=== PATIENT | female | born 1990 | race Caucasian/White ===

== ENCOUNTER 2016-10-28 15:40 | Inpatient (IN) | payer MEDICAID, OTHER ==
[~2016-10-28] VITALS: Ht 167.6 cm; Wt 100.2 kg
[2016-10-28] VITALS (40 sets, daily range): BP systolic 78–142; BP diastolic 42–86
[2016-10-28] MEDS ORDERED: LEVO25TA5 PO (16:16)
[2016-10-28 16:42] LABS: BILIRUBIN,URINE NEGATIVE (NEGATIVE); KETONES,URINE NEGATIVE (NEGATIVE); LEUKOCYTE ESTERASE ,URINE 1+ (NEGATIVE); NITRITE,URINE NEGATIVE (NEGATIVE); PH,URINE 8 (5-9); PROTEIN,URINE NEGATIVE (NEGATIVE); UROBILINOGEN,URINE NORMAL (NORMAL)
[2016-10-28 17:00] LABS: WBC,URINE 0-2 /HPF
[2016-10-28] MEDS ORDERED: AMPICILLIN 2000 MG INJECTION (IM/IV) ONE (17:07)
[2016-10-28] MEDS ORDERED: NS (IVPB) 50 ML ONE (17:08)
[2016-10-28] MEDS: D5 LR IV SOLUTION 1,000 ML IV SCH (17:25)
[2016-10-28] MEDS ORDERED: AMPICILLIN INJECTION 2,000 MG in NS (IVPB) 50 ML IV ONE (17:30)
[2016-10-28] MEDS: OXYTOCIN/NORMAL SALINE 500 ML IV SCH (18:10)
[2016-10-28 18:18] LABS: BASOPHILS % (AUTO) 0 % (0-10); EOSINOPHILS # (AUTO) 0.1 10^3/uL (0.0-0.3); EOSINOPHILS % (AUTO) 1 % (0-10); LYMPHOCYTES # (AUTO) 1.2 X 10^3 (1.0-4.0); LYMPHOCYTES % (AUTO) 12 % (12-44); MEAN CORPUSCULAR HEMOGLOBIN 29 PG (25-34); MEAN CORPUSCULAR HGB CONC 33 G/DL (32-36); MEAN CORPUSCULAR VOLUME 87 FL (80-99); MEAN PLATELET VOLUME 13.7 FL (7.4-10.4); MONOCYTES # (AUTO) 1.4 X 10^3 (0.0-1.0); MONOCYTES % (AUTO) 15 % (0-12); NEUTROPHILS # (AUTO) 6.8 X 10^3 (1.8-7.8); NEUTROPHILS % (AUTO) 71 % (42-75); PLATELET COUNT 104 10^3/uL (130-400); RED CELL DISTRIBUTION WIDTH 12.7 % (10.0-14.5); WHITE BLOOD COUNT 9.5 10^3/uL (4.3-11.0)
--- NOTE | 2016-10-28 18:34 | History & Physical-OB ---
OB - Chief Complaint & HPI Date/Time Date of Admission: Date of Admission: Oct 28, 2016 at 4:55 pm Time Seen by Provider: 17:30 Chief Complaint/History OB-Reason for Admission/Chief: Rupture of Membranes Hx : 6 Hx Para: 3 Expected Date of Delivery: Dec 16, 2016 Gestational Age in Weeks: 37 Other reason for admission: This 26-year-old is here today due to spontaneous rupture membranes. The patient reports that it occurred at 3 o'clock this morning she went about her day and came over to [place] to visit some friends she is from [facility] and normally sees Dr. Barber at [place]. She denies any contractions that are regular. She denies any concerns with the and records are called for and obtained from [place]. Admission Nurse Assessment Rev: Yes History of Labs Laboratory Tests Test 10/28/16 16:00 10/28/16 17:30 Range/Units Urine Color YELLOW Urine Clarity CLEAR Urine pH 8 5-9 Urine Specific [place] 1.015 L 1.016-1.022 Urine Protein NEGATIVE NEGATIVE Urine Glucose (UA) NEGATIVE NEGATIVE Urine Ketones NEGATIVE NEGATIVE Urine Nitrite NEGATIVE NEGATIVE Urine Bilirubin NEGATIVE NEGATIVE Urine Urobilinogen NORMAL NORMAL MG/DL Urine Leukocyte Esterase 1+ H NEGATIVE Urine RBC (Auto) NEGATIVE NEGATIVE Urine RBC NONE /HPF Urine WBC 0-2 /HPF Urine Squamous Epithelial Cells 2-5 /HPF Urine Crystals NONE /LPF Urine Bacteria NEGATIVE /HPF Urine Casts NONE /LPF Urine Mucus NEGATIVE /LPF Urine Culture Indicated NO Urine Opiates Screen NEGATIVE NEGATIVE Urine Oxycodone Screen NEGATIVE NEGATIVE Urine Methadone Screen NEGATIVE NEGATIVE Urine Propoxyphene Screen NEGATIVE NEGATIVE Urine Barbiturates Screen NEGATIVE NEGATIVE Ur Tricyclic Antidepressants Screen NEGATIVE NEGATIVE Urine Phencyclidine Screen NEGATIVE NEGATIVE Urine Amphetamines Screen NEGATIVE NEGATIVE Urine Methamphetamines Screen NEGATIVE NEGATIVE Urine Benzodiazepines Screen NEGATIVE NEGATIVE Urine Cocaine Screen NEGATIVE NEGATIVE Urine Cannabinoids Screen NEGATIVE NEGATIVE White Blood Count 9.5 4.3-11.0 10^3/uL Red Blood Count 4.20 L 4.35-5.85 10^6/uL Hemoglobin 12.0 11.5-16.0 G/DL Hematocrit 37 35-52 % Mean Corpuscular Volume 87 80-99 FL Mean Corpuscular Hemoglobin 29 25-34 PG Mean Corpuscular Hemoglobin Concent 33 32-36 G/DL Red Cell Distribution Width 12.7 10.0-14.5 % Platelet Count 104 L 130-400 10^3/uL Mean Platelet Volume 13.7 H 7.4-10.4 FL Neutrophils (%) (Auto) 71 42-75 % Lymphocytes (%) (Auto) 12 12-44 % Monocytes (%) (Auto) 15 H 0-12 % Eosinophils (%) (Auto) 1 0-10 % Basophils (%) (Auto) 0 0-10 % Neutrophils # (Auto) 6.8 1.8-7.8 X 10^3 Lymphocytes # (Auto) 1.2 1.0-4.0 X 10^3 Monocytes # (Auto) 1.4 H 0.0-1.0 X 10^3 Eosinophils # (Auto) 0.1 0.0-0.3 10^3/uL Basophils # (Auto) 0.0 0.0-0.1 10^3/uL A neg Antibody neg RI RPR NR HBsAg NR HIV NR GC neg GBS pos Allergies and Home Medications Allergies Coded Allergies: medroxyprogesterone (Verified Allergy, Unknown, HIVES, 10/28/16) ondansetron (Verified Allergy, Unknown, HIVES, 10/28/16) Home Medications Levothyroxine Sodium 25 Mcg Tablet, 25 MCG PO DAILY, (Reported) OB - History Hx of Present Care: Yes Ultrasounds: Normal mid trimester US Obstetrical Complications: None Medical Complications: None Obstetrical History Hx : 6 Hx Para: 3 Hx Total # of Abortions (Spona: 2 Delivery History Adverse Rxn to Tranfusion: No Patient Past Medical History Hypothyroidism Social History/Family History HIV/AIDS: No Recent Infectious Disease Expo: No Sexually Transmitted Disease: No Alcohol Use: Denies Use Recreational Drug Use: No Immunizations Hepatitis A: Yes Hepatitis B: Yes OB - Admission Exam Physical Exam Date Seen by Provider: Oct 28, 2016 Time Seen by Provider: 18:20 Vitals: Vital Signs 10/28/16 16:10 Pulse 94 Resp 18 B/P (MAP) 125/71 O2 Delivery Room Air HEENT: NCAT Heart: Rhythm Normal Lungs: Clear Reflexes: Normal Cervical Dilatation: 3cm Effacement: 75% Station: -1 Membranes: Ruptured Amniotic Fluid: Clear Heart Rate: 130's Accelerations: Accelerations Present Decelerations: No Decelerations Short Term Variability: Present Genetic Physician Variability: Minimal (3-5) Contractions on Admission: >10 Minutes Apart Intensity: Mild Labs Laboratory Tests Test 10/28/16 16:00 10/28/16 17:30 Range/Units Urine Color YELLOW Urine Clarity CLEAR Urine pH 8 5-9 Urine Specific [place] 1.015 L 1.016-1.022 Urine Protein NEGATIVE NEGATIVE Urine Glucose (UA) NEGATIVE NEGATIVE Urine Ketones NEGATIVE NEGATIVE Urine Nitrite NEGATIVE NEGATIVE Urine Bilirubin NEGATIVE NEGATIVE Urine Urobilinogen NORMAL NORMAL MG/DL Urine Leukocyte Esterase 1+ H NEGATIVE Urine RBC (Auto) NEGATIVE NEGATIVE Urine RBC NONE /HPF Urine WBC 0-2 /HPF Urine Squamous Epithelial Cells 2-5 /HPF Urine Crystals NONE /LPF Urine Bacteria NEGATIVE /HPF Urine Casts NONE /LPF Urine Mucus NEGATIVE /LPF Urine Culture Indicated NO Urine Opiates Screen NEGATIVE NEGATIVE Urine Oxycodone Screen NEGATIVE NEGATIVE Urine Methadone Screen NEGATIVE NEGATIVE Urine Propoxyphene Screen NEGATIVE NEGATIVE Urine Barbiturates Screen NEGATIVE NEGATIVE Ur Tricyclic Antidepressants Screen NEGATIVE NEGATIVE Urine Phencyclidine Screen NEGATIVE NEGATIVE Urine Amphetamines Screen NEGATIVE NEGATIVE Urine Methamphetamines Screen NEGATIVE NEGATIVE Urine Benzodiazepines Screen NEGATIVE NEGATIVE Urine Cocaine Screen NEGATIVE NEGATIVE Urine Cannabinoids Screen NEGATIVE NEGATIVE White Blood Count 9.5 4.3-11.0 10^3/uL Red Blood Count 4.20 L 4.35-5.85 10^6/uL Hemoglobin 12.0 11.5-16.0 G/DL Hematocrit 37 35-52 % Mean Corpuscular Volume 87 80-99 FL Mean Corpuscular Hemoglobin 29 25-34 PG Mean Corpuscular Hemoglobin Concent 33 32-36 G/DL Red Cell Distribution Width 12.7 10.0-14.5 % Platelet Count 104 L 130-400 10^3/uL Mean Platelet Volume 13.7 H 7.4-10.4 FL Neutrophils (%) (Auto) 71 42-75 % Lymphocytes (%) (Auto) 12 12-44 % Monocytes (%) (Auto) 15 H 0-12 % Eosinophils (%) (Auto) 1 0-10 % Basophils (%) (Auto) 0 0-10 % Neutrophils # (Auto) 6.8 1.8-7.8 X 10^3 Lymphocytes # (Auto) 1.2 1.0-4.0 X 10^3 Monocytes # (Auto) 1.4 H 0.0-1.0 X 10^3 Eosinophils # (Auto) 0.1 0.0-0.3 10^3/uL Basophils # (Auto) 0.0 0.0-0.1 10^3/uL OB - Assessment/Plan/Diagnosis Assessment Assessment: active labor, rupture of membranes Discharge Diagnosis Diagnosis: 26 yo @ 37 weeks SROM No local physician- here for delivery care at [facility] + JUANITO CABA DO Oct 28, 2016 6:34 pm
[2016-10-28] MEDS ORDERED: SUFENTA 0.6MCG/ML BUPIVA 0.125 100 ML ONE (19:55)
[2016-10-28] MEDS ORDERED: fentaNYL INJECTION 100 MCG/2 ML AMP ONE (20:01)
[2016-10-28] MEDS ORDERED: BUPIVACAINE 0.25% 30 ML (SENSORCAINE) VIAL ONE (20:01)
[2016-10-28] MEDS ORDERED: LACTATED RINGERS 1,000 ML IV ONE ×2 (20:27)
[2016-10-28] MEDS ORDERED: EPIDURAL (SUFENTA 0.6MCG/ML BUPIVA 0.125%) 100 ML BAG EPI PRN (20:30)
[2016-10-28] MEDS ORDERED: NALOXONE 0.4 MG/ML 1 ML (NARCAN) VIAL IV PRN (20:30)
[2016-10-28] MEDS: AMPICILLIN INJECTION 1,000 MG in NS (IVPB) 50 ML IV SCH (21:24)
[2016-10-29] VITALS (34 sets, daily range): BP systolic 63–136; BP diastolic 36–80
[2016-10-29] MEDS: D5 LR IV SOLUTION 1,000 ML IV SCH ×3 (00:35→18:13)
[2016-10-29] MEDS: AMPICILLIN INJECTION 1,000 MG in NS (IVPB) 50 ML IV SCH (01:34)
[2016-10-29] MEDS: CATHETER FLUSH 10 ML SYR IV SCH (01:46)
[2016-10-29] MEDS ORDERED: LIDOCAINE/EPI 2% 1:200,00 (XYLOCAINE) 10 ML VIAL ONE ×2 (03:07→03:15)
[2016-10-29] MEDS ORDERED: METHYLERGONOVINE 0.2 MG/ML (METHERGINE) AMP ONE ×2 (04:35→04:50)
[2016-10-29] MEDS ORDERED: MISOPROSTOL 200 MCG (CYTOTEC) TABLET ONE (04:38)
[2016-10-29] MEDS ORDERED: ceFAZolin 1,000 MG (ANCEF) VIAL ONE ×2 (05:01→06:07)
[2016-10-29] MEDS ORDERED: METOCLOPRAMIDE INJ 10 MG/2 ML (REGLAN) ONE (05:01)
[2016-10-29] MEDS: OXYTOCIN/NORMAL SALINE 500 ML IV SCH ×2 (05:01→05:37)
[2016-10-29] MEDS ORDERED: CITRIC ACID/SOB CIT (BICITRA) 30 ML UDC ONE (05:01)
[2016-10-29] MEDS ORDERED: FAMOTIDINE 20MG/2ML IV (PEPCID) ONE (05:01)
[2016-10-29] MEDS ORDERED: NS (IVPB) 50 ML ONE (05:02)
[2016-10-29] MEDS ORDERED: MISOPROSTOL 100 MCG (CYTOTEC) TAB PR ONE (05:15)
[2016-10-29] MEDS ORDERED: METHYLERGONOVINE 0.2 MG/ML (METHERGINE) AMP IM ONE ×2 (05:15)
[2016-10-29] MEDS ORDERED: LACTATED RINGERS 1,000 ML IV SCH (05:17)
[2016-10-29] MEDS ORDERED: NS IV 500 ML 500 ML ONE (05:25)
[2016-10-29] MEDS ORDERED: MIDAZOLAM 2 MG/2 ML (VERSED) VIAL ONE (05:39)
[2016-10-29] MEDS ORDERED: fentaNYL INJECTION 100 MCG/2 ML AMP ONE (05:39)
[2016-10-29] MEDS ORDERED: ETOMIDATE IV SOLN 20 MG/10 ML VIAL ONE (05:59)
[2016-10-29] MEDS ORDERED: proPOfol 200 MG/20 ML (DIPRIVAN) VIAL IV ONE (05:59)
[2016-10-29] MEDS ORDERED: ONDANSETRON 4 MG/2 ML (SDV) Z0FRAN ONE (05:59)
[2016-10-29] MEDS ORDERED: SUCCINYLCHOLINE INJ 100 MG/5 ML SYR ONE (05:59)
[2016-10-29] MEDS ORDERED: metroNIDAZOLE 500MG/100ML IVPB 100 ML ONE (06:07)
[2016-10-29] MEDS: NS IV 1000 ML 1,000 ML IV PRN (06:20)
[2016-10-29] MEDS ORDERED: PHENYLEPHRINE 100 MCG/ML 10 ML (ANESTHESIA) SYR ONE (06:21)
[2016-10-29] MEDS ORDERED: ROCURONIUM 50 MG/5 ML (ZEMURON) VIAL IV ONE (06:21)
[2016-10-29] MEDS ORDERED: morphine INJ 10 MG/ML 1ML (SYR OR VIAL) ONE (06:57)
[2016-10-29] MEDS ORDERED: NS IV 1000 ML 1,000 ML ONE (06:58)
[2016-10-29] MEDS ORDERED: SEVOFLURANE (ULTANE) 15 ML INHAL SOLN ONE (07:35)
[2016-10-29] MEDS ORDERED: PROMETHAZINE INJ 25 MG/ML (PHENERGAN) AMP IVP PRN ×2 (07:45→08:00)
--- NOTE | 2016-10-29 07:45 | OB Labor & Delivery Record ---
L&D History Date of Service Date of Service: Oct 29, 2016 History Expected Date of Delivery: Dec 16, 2016 Gestational Age in Weeks: 37 Hx : 6 Hx Para: 3 Complications Events: No Care ( care with Dr. Barber in [place]) Operative Indications (Cesarea: N/A-Vaginal Delivery Intrapartal Events: None Other Complications hemorrhage and hysterectomy L&D Stage1 Stage One Onset of Labor - Date: Oct 29, 2016 Monitors and Tracing Monitor Mode: External Heart Rate: 125 Station: 0 Vital Signs VS - Last 72 Hours, by Label 10/28/16 10/28/16 10/28/16 10/28/16 16:10 16:10 18:00 18:45 Temp 98.9 98.8 Pulse 94 93 91 Resp 18 18 18 B/P (MAP) 125/71 131/71 132/69 O2 Delivery Room Air Room Air Room Air 10/28/16 10/28/16 10/28/16 10/28/16 19:00 19:15 19:30 19:45 Temp 99.0 Pulse 91 93 92 98 Resp 18 18 18 B/P (MAP) 132/69 128/71 130/72 142/82 O2 Delivery Room Air Room Air Room Air Room Air 10/28/16 10/28/16 10/28/16 10/28/16 20:00 20:13 20:15 20:17 Temp 97.8 Pulse 93 95 99 Resp 18 18 18 18 B/P (MAP) 135/73 124/70 123/80 Pulse Ox 100 99 O2 Delivery Room Air Room Air Room Air Room Air 10/28/16 10/28/16 10/28/16 10/28/16 20:18 20:22 20:24 20:27 Pulse 92 101 101 103 Resp 18 18 18 18 B/P (MAP) 127/76 140/63 125/86 119/59 Pulse Ox 100 99 99 99 O2 Delivery Room Air Room Air Room Air Room Air 10/28/16 10/28/16 10/28/16 10/28/16 20:30 20:30 20:33 20:36 Pulse 106 89 99 Resp 18 18 18 18 B/P (MAP) 78/47 128/65 124/62 Pulse Ox 100 100 99 O2 Delivery Room Air Room Air Room Air Room Air 8/2010/28/16 10/28/16 10/28/16 20:40 20:43 20:44 20:45 Pulse 102 78 73 Resp 18 18 18 18 B/P (MAP) 114/54 86/42 85/43 Pulse Ox 99 99 O2 Delivery Room Air Room Air Room Air Room Air 10/28/16 10/28/16 10/28/16 10/28/16 20:46 20:49 20:51 20:54 Pulse 94 103 120 120 Resp 18 18 18 18 B/P (MAP) 109/63 118/57 119/59 119/59 Pulse Ox 99 99 98 98 O2 Delivery Room Air Room Air 10/28/16 10/28/16 10/28/16 10/28/16 20:57 21:00 21:00 21:05 Temp 97.2 Pulse 101 111 103 Resp 18 18 18 18 B/P (MAP) 121/60 113/55 129/66 Pulse Ox 98 100 100 O2 Delivery Room Air 10/28/16 10/28/16 10/28/16 10/28/16 21:10 21:15 21:15 21:20 Pulse 105 108 103 Resp 18 18 18 18 B/P (MAP) 123/69 122/63 116/63 Pulse Ox 99 98 99 O2 Delivery Room Air 10/28/16 10/28/16 10/28/16 10/28/16 21:25 21:30 21:30 21:45 Pulse 117 104 Resp 18 18 18 18 B/P (MAP) 109/55 103/55 116/67 Pulse Ox 100 99 99 O2 Delivery Room Air Room Air 10/28/16 10/28/16 10/28/16 10/28/16 21:45 22:00 22:00 22:15 Pulse 104 Resp 18 18 18 18 B/P (MAP) 114/66 Pulse Ox 99 O2 Delivery Room Air Room Air Room Air Room Air 10/28/16 10/28/16 10/28/16 10/28/16 22:15 22:30 22:30 22:45 Pulse 103 102 103 Resp 18 18 18 18 B/P (MAP) 112/64 129/74 Pulse Ox 98 98 99 O2 Delivery Room Air Room Air Room Air Room Air 10/28/16 10/28/16 10/28/16 10/28/16 23:00 23:15 23:30 23:45 Temp 97.3 Pulse 100 103 102 98 Resp 18 18 18 18 B/P (MAP) 131/77 122/71 124/69 128/73 Pulse Ox 100 97 99 97 O2 Delivery Room Air Room Air Room Air Room Air 10/29/16 10/29/16 10/29/16 10/29/16 00:00 00:15 00:30 00:45 Pulse 103 98 98 102 Resp 18 18 18 18 B/P (MAP) 125/73 136/74 132/73 122/77 Pulse Ox 98 99 99 98 O2 Delivery Room Air Room Air Room Air Room Air 10/29/16 10/29/16 10/29/16 10/29/16 01:00 01:15 01:30 01:45 Temp 97.6 Pulse 96 96 100 100 Resp 18 18 18 18 B/P (MAP) 122/61 122/61 116/72 116/72 Pulse Ox 97 97 98 98 O2 Delivery Room Air Room Air Room Air Room Air 10/29/16 10/29/16 10/29/16 10/29/16 02:00 02:15 02:30 02:45 Pulse 88 88 88 96 Resp 18 18 18 18 B/P (MAP) 118/69 112/73 107/65 121/78 Pulse Ox 98 97 97 98 O2 Delivery Room Air Room Air Room Air Room Air 10/29/16 10/29/16 10/29/16 10/29/16 03:00 03:15 03:30 03:45 Pulse 96 90 99 92 Resp 18 18 18 18 B/P (MAP) 117/72 132/71 123/70 125/75 Pulse Ox 99 98 98 99 O2 Delivery Room Air Room Air Room Air Room Air 10/29/16 04:00 Pulse 90 Resp 18 B/P (MAP) 113/64 Pulse Ox 97 O2 Delivery Room Air Rupture of Membranes Amniotic Membrane Rupture Time: 0300 Amniotic Fluid Membrane Tests: Nitrazine Positive Vaginal Bleeding Description: Normal Show Induction/Anesthesia Epidural Cath Placement - Time: 2016 Progress/Notes Patient presented with spontaneous rupture membranes at 3 o'clock on October 28, 2016. She presented at 4 o'clock in the afternoon. She reports that she was in [place] therefore that why she stopped that our hospital rather than return to [place] where her physician was. She was not cierra upon arrival , Pitocin was started to augment her labor. L&D Stage2 Stage Two Stage II Date: Oct 29, 2016 Monitors and Tracing Monitor Mode: External Heart Rate: 125 Monitor Decelerations: Variable Nursing Home Variability: Average (6-10) Short Term Variability: Present Position: Right Occiput Anterior Presentation: Vertex Cord Descript/Complications Cord Vessel Description: 3 Vessels Complications Nuchal cord 1 Delivery Type Anterior Shoulder: Right Episiotomy/Perineal Laceration Laceraction(s)/Extensions: No Condition of Delivery 1 minute Comment: 8 5 minute Comment: 9 Notes Live female infant weighing 8 pounds with Apgars of 8 and 9 Condition of Condition of Infant: Living Exam: No Observed Abnormalities Resuscitation Resuscitation: N/A - Spontaneous Resp L&D Stage3 Stage Three Stage III Date: Oct 29, 2016 Pictocin Pitocin Administration mu/min: 10 Pitocin ml/hr: 10 Pitocin Administration Comment: 30 milliunits wide open 2 bags There was retention of the placenta greater than 20 minutes, due to good pain control with epidural I was able to manually remove the placenta however it did not completely separate at the placental plate given the suspicion for underlying infiltration of the placenta and possible accreta. Placenta Delivery Placenta Delivery: Manual Delivery Summary Summary blood loss >1000ml: No Vaginal blood loss >500ml: Yes 2000 mL Attending at delivery: Kurtis Caba DO Condition of Delivery Examined: Cervix Examined, Uterus Explored Post Hemorrhage: Yes Intervention Required 1000 g of Cytotec were given rectally, as well as 2 separate doses 30 minutes apart of 0.2 Methergine IM. Bleeding continued to be significant despite manual exploration of the uterine cavity as well as curetting the endometrial cavity using a large banded curette. There was no response in the bleeding and the patient continued to hemorrhage significantly. Operating room staff called and patient taken the operating room please see operative report for complete details pertaining to the operative procedure Condition of Mother to OR see operative report Condition of Infant (s) stable KURTIS CABA DO Oct 29, 2016 7:45 am
--- NOTE | 2016-10-29 07:47 | Progress Note-Post Operative ---
Post-Operative Progess Note Surgeon (s)/Dice Spotter (s) Surgeon JUANITO CABA DO Dice Spotter: Karla Sanderson DO Pre-Operative Diagnosis hemorrhage Post-Operative Diagnosis same, + Suspected placenta accreta Procedure & Operative Findings Date of Procedure 10/29/16 Procedure Performed/Findings Endometrial curretting and supracervical hysterectomy. Anesthesia Type GETA Estimated Blood Loss Estimated blood loss (mL): 2000 in L and D, 1000 intraoperative. 3L total Specimens/Packing Specimens Removed uterus supracervical JUANITO CABA DO Oct 29, 2016 7:47 am
[2016-10-29] MEDS ORDERED: HYDROmorphone (DILAUDID) 2 MG/ML VIAL IVP PRN (08:00)
[2016-10-29] MEDS ORDERED: morphine INJ 10 MG/ML 1ML (SYR OR VIAL) IVP PRN (08:00)
[2016-10-29 08:44] LABS: BASOPHILS % (AUTO) 0 % (0-10); EOSINOPHILS % (AUTO) 0 % (0-10); LYMPHOCYTES # (AUTO) 0.6 X 10^3 (1.0-4.0); LYMPHOCYTES % (AUTO) 3 % (12-44); MEAN CORPUSCULAR HEMOGLOBIN 30 PG (25-34); MEAN CORPUSCULAR HGB CONC 34 G/DL (32-36); MEAN CORPUSCULAR VOLUME 90 FL (80-99); MEAN PLATELET VOLUME 13.7 FL (7.4-10.4); MONOCYTES # (AUTO) 1.5 X 10^3 (0.0-1.0); MONOCYTES % (AUTO) 8 % (0-12); NEUTROPHILS # (AUTO) 15.6 X 10^3 (1.8-7.8); NEUTROPHILS % (AUTO) 88 % (42-75); PLATELET COUNT 92 10^3/uL (130-400); RED BLOOD COUNT 3.56 10^6/uL (4.35-5.85); RED CELL DISTRIBUTION WIDTH 13.5 % (10.0-14.5); WHITE BLOOD COUNT 17.7 10^3/uL (4.3-11.0)
[2016-10-29] MEDS: HYDROcodone/APAP 5 MG/325 MG (LORTAB) TAB PO PRN ×3 (09:41→22:27)
[2016-10-29] MEDS: KETOROLAC 30 MG/ML VIAL IVP SCH ×3 (09:51→22:27)
--- NOTE | 2016-10-29 10:21 | OPERATIVE REPORT ---
DATE OF SERVICE: PREOPERATIVE DIAGNOSIS: A 26-year-old with significant hemorrhage of greater than 2 liters. POSTOPERATIVE DIAGNOSIS: A 26-year-old with significant hemorrhage of greater than 2 liters, suspected placenta accreta. PROCEDURE: Endometrial curetting and supracervical hysterectomy, abdominal. SURGEON: Dr. Kurtis Cleveland. POOL MANAGER: Dr. Karla Sanderson. ANESTHESIA: General endotracheal. ESTIMATED BLOOD LOSS: A total of 3 liters, 2 liters lost in the LDR room, 1 liter intraoperatively. URINE OUTPUT: 100 mL of clear at the end of procedure. FLUIDS: 2100 mL of lactate ringer solution, 4 units of blood and 1 unit of platelets. SPECIMENS SENT: Uterus, supracervical. INDICATIONS FOR PROCEDURE: This 26-year-old female who had sought her care in [place], [place], presented to our labor and delivery room with spontaneous rupture of membranes yesterday afternoon. Her labor was augmented with Pitocin. The patient progressed to complete and delivered the infant without any complication. However, , the patient continued to bleed and never had a slowing in the amount of bleeding she was having. Several measures were taken in the labor and delivery room including 2 separate doses of Methergine given and 1000 microgram of Cytotec rectally. The patient is not a candidate for Hemabate due to a history of asthma. Due to good epidural control, I did perform a bedside curetting of the endometrial cavity, which was not successful in controlling her bleeding and actually made it slightly worse. On bimanual examination, you could appreciate the smoothness of the anterior uterine wall, but the posterior uterine wall was irregular. There was good uterine tone; however, bleeding continued to be significant. It did not appear to be from the cervix. There was no vaginal lacerations that were noted either. I then packed using sponges the uterus, to try and control the bleeding at that point; however, the patient became significantly unstable, blood pressures were dropping down into the 70s/40s, heart rate had increased into the 110s to 120s. Four units of blood, 2 were ordered to be given and 2 on standby were ordered. I contacted the operating room crew and discussed with the patient briefly as she was in and out of consciousness, about proceeding with operative measures in order to control her bleeding, up to and including hysterectomy. Risks were inferred in the procedure; however, due to the patient's mental status, I did not detail too much of the risk, rather discussed with her I would do what I needed to do to save her life at that time. She was okay with getting blood transfusion as well and understanding of the risk involved in that. Consent was obtained. The patient was taken to the operating room. Her significant other had all of his questions answered as well. OPERATIVE REPORT IN DETAIL: Once in the operating room, general anesthesia was found to be adequate. She was placed in dorsal lithotomy position, prepped and draped in normal sterile fashion. A Vera catheter was placed using sterile technique. The patient again examined under anesthesia and there was a significant amount of blood clots in the vagina. It is soaking through the packing that I had placed earlier. I then removed the uterine packing and proceeded with repeating a curetting. I did this on several different attempts and accounts, all of which were unsuccessful and bleeding only continues to get significantly worse. At this point, the patient is on her third bag of Pitocin and on her second unit of blood. I contacted my partner, Dr. Sanderson, to come and assist me as at that point I had decided to proceed with laparotomy and possible hysterectomy. Change of gloves was performed. I then turned my attention to the abdomen where I make a Pfannenstiel skin incision with a knife and carried down to underlying fascia using Bovie cautery, the fascial incisions extended laterally using Bovie cautery. Superior aspect of the facial incision was then grasped with Kochar clamps, tented upward and dissected off the underlying rectus muscles. The inferior aspect of the facial incisions were then grasped with Jaswinder clamps, tented upward and dissected off the underlying rectus muscles. The rectus muscles were then dissected down the midline using Wilkinson scissors, which exposed the peritoneum, which I entered bluntly and extended using blunt traction. I placed the Paddy ring retractor in the peritoneal incision, which offers excellent lateral sidewall retraction. I was then able to grasp the top of the uterus and lift it up out of the pelvis. I put Peon clamps down the lateral margins of the uterus, clamping off the round ligament, the uteroovarian and the fallopian tube. I then performed the following procedure bilaterally: I bipolar cauterized using a LigaSure impact the adnexal complex including the fallopian tube and the uteroovarian ligament and then transected using the LigaSure. I then grasped the round ligament, bipolar cauterized this and transected using the LigaSure. I then took down the broad ligament to the lower uterine segment using LigaSure. I then performed similar dissection on the opposite side and then connect the two going across the lower uterine segment creating a bladder flap using Bovie cautery. A sponge stick was used to dissect the peritoneum off of the lower uterine segment on the posterior portion of the uterus I then also created a peritoneal reflection, opening up the peritoneum and isolating the uterine vessels laterally. Once they were isolated, I bipolar cauterized them in several different spots using the LigaSure and then transect. This significantly controls the bleeding, at which point I then amputate the uterus using monopolar tower and the LigaSure as well as I encounter bleeding. The uterus stump is then removed and sent as uterus for final pathology. The cervical stump that is left is made hemostatic using [id number] 0 Vicryl sutures in interrupted fashion, after which there was no active bleeding noted from the cervical stump. There was a small amount of oozing noted from the ovarian pedicles, which were made hemostatic using Bovie cautery and Rafa stitches as well, using 2-0 Vicryl suture. After which, the pelvis was copiously irrigated using normal saline. There was no active bleeding noted from any of my dissection points. I placed Surgicel hemostatic agent over all of my planes of dissection to ensure excellent postoperative hemostasis. I then closed the peritoneum using 3-0 Vicryl suture in a running fashion. The rectus muscles were reapproximated using 3-0 Vicryl suture in interrupted fashion, the fascia was reapproximated using 0 Vicryl suture in a running fashion, the subcutaneous tissue was reapproximated using 3-0 plain in interrupted subcutaneous stitch and the skin was reapproximated using 4-0 Monocryl in a running subcuticular. Dermabond was applied to the incision and sterile dressings and adhesive wide tape. The patient was taken to the recovery area in stable condition. Lap and sponge counts were correct at the end of the procedure. Instrument counts were correct as well. Two grams of Ancef and 500 mg of Flagyl were given intraoperatively for infection prophylaxis. The second dose of 2 grams of Ancef is ordered for 8 hours postoperatively. Vera catheter was left in place. Four units of blood and a unit of platelets are being transfused during the operative procedure. Job ID: [id number] DocumentID: [id number] Dictated Date: 10/29/2016 07:56:38 Technology Sales Consultant Date: 10/29/2016 10:21:11 Dictated By: KURTIS CLEVELAND DO
[2016-10-29 12:23] LABS: BASOPHILS % (AUTO) 0 % (0-10); EOSINOPHILS % (AUTO) 0 % (0-10); LYMPHOCYTES # (AUTO) 0.7 X 10^3 (1.0-4.0); LYMPHOCYTES % (AUTO) 6 % (12-44); MEAN CORPUSCULAR HEMOGLOBIN 30 PG (25-34); MEAN CORPUSCULAR HGB CONC 34 G/DL (32-36); MEAN CORPUSCULAR VOLUME 89 FL (80-99); MEAN PLATELET VOLUME 13.9 FL (7.4-10.4); MONOCYTES % (AUTO) 9 % (0-12); NEUTROPHILS % (AUTO) 85 % (42-75); PLATELET COUNT 82 10^3/uL (130-400); RED BLOOD COUNT 3.17 10^6/uL (4.35-5.85); RED CELL DISTRIBUTION WIDTH 13.2 % (10.0-14.5); WHITE BLOOD COUNT 11.7 10^3/uL (4.3-11.0)
[2016-10-29] MEDS ORDERED: ceFAZolin 2 GM/50 ML NS 50 ML IV NR (13:00)
[2016-10-30] VITALS (9 sets, daily range): BP systolic 104–121; BP diastolic 56–74
[2016-10-30] MEDS: D5 LR IV SOLUTION 1,000 ML IV SCH (02:12)
[2016-10-30] MEDS: HYDROcodone/APAP 5 MG/325 MG (LORTAB) TAB PO PRN ×3 (02:37→14:28)
[2016-10-30] MEDS: KETOROLAC 30 MG/ML VIAL IVP SCH ×2 (04:20→08:02)
[2016-10-30 06:27] LABS: BASOPHILS % (AUTO) 0 % (0-10); EOSINOPHILS # (AUTO) 0.2 10^3/uL (0.0-0.3); EOSINOPHILS % (AUTO) 2 % (0-10); LYMPHOCYTES # (AUTO) 1.2 X 10^3 (1.0-4.0); LYMPHOCYTES % (AUTO) 15 % (12-44); MEAN CORPUSCULAR HEMOGLOBIN 30 PG (25-34); MEAN CORPUSCULAR HGB CONC 34 G/DL (32-36); MEAN CORPUSCULAR VOLUME 89 FL (80-99); MEAN PLATELET VOLUME 13.7 FL (7.4-10.4); MONOCYTES # (AUTO) 0.8 X 10^3 (0.0-1.0); MONOCYTES % (AUTO) 10 % (0-12); NEUTROPHILS # (AUTO) 5.8 X 10^3 (1.8-7.8); NEUTROPHILS % (AUTO) 73 % (42-75); PLATELET COUNT 68 10^3/uL (130-400); RED BLOOD COUNT 2.51 10^6/uL (4.35-5.85); RED CELL DISTRIBUTION WIDTH 13.3 % (10.0-14.5)
--- NOTE | 2016-10-30 07:59 | Postpartum Progress Note ---
Note Note Day # s/p with PP hemorrhage, dilation and curettage, emergency IRAIS (supracervical hysterectomy), s/p 4 units PRRBCs, mass transfusion protocol , 2 units ffp and 1 pack platelets. Breast feeding Not ambulating yet Subjective: Patient is without complaints. Ambulating, voiding. Tolerating a regular diet without nausea or vomiting. Normal lochia. Pain is well controlled with oral pain medications. breast feeding. Objective: Laboratory Tests Test 10/29/16 08:36 10/29/16 12:10 10/30/16 06:16 Range/Units White Blood Count 17.7 H 11.7 H 8.0 4.3-11.0 10^3/uL Red Blood Count 3.56 L 3.17 L 2.51 L 4.35-5.85 10^6/uL Hemoglobin 10.7 L 9.4 L 7.5 #L 11.5-16.0 G/DL Hematocrit 32 L 28 L 22 L 35-52 % Mean Corpuscular Volume 90 89 89 80-99 FL Mean Corpuscular Hemoglobin 30 30 30 25-34 PG Mean Corpuscular Hemoglobin Concent 34 34 34 32-36 G/DL Red Cell Distribution Width 13.5 13.2 13.3 10.0-14.5 % Platelet Count 92 L 82 L 68 L 130-400 10^3/uL Mean Platelet Volume 13.7 H 13.9 H 13.7 H 7.4-10.4 FL Neutrophils (%) (Auto) 88 H 85 H 73 42-75 % Lymphocytes (%) (Auto) 3 L 6 L 15 12-44 % Monocytes (%) (Auto) 8 9 10 0-12 % Eosinophils (%) (Auto) 0 0 2 0-10 % Basophils (%) (Auto) 0 0 0 0-10 % Neutrophils # (Auto) 15.6 H 10.0 H 5.8 1.8-7.8 X 10^3 Lymphocytes # (Auto) 0.6 L 0.7 L 1.2 1.0-4.0 X 10^3 Monocytes # (Auto) 1.5 H 1.0 0.8 0.0-1.0 X 10^3 Eosinophils # (Auto) 0.0 0.0 0.2 0.0-0.3 10^3/uL Basophils # (Auto) 0.0 0.0 0.0 0.0-0.1 10^3/uL Vital Sign - Last 12Hours 10/29/16 10/30/16 10/30/16 20:53 00:35 04:15 Temp 98.6 98.3 98.6 Pulse 80 88 80 Resp 18 18 18 B/P (MAP) 120/70 113/61 109/56 Pulse Ox 100 98 98 O2 Delivery Room Air Room Air Room Air Physical Exam: General - Alert and oriented, no apparent distress Abdomen - Soft, appropriately tender to palpation, non-distended, fundus firm at umbilicus Extremities - no edema, negative Gavino's bilaterally Assessment: 1. post- day # 1 s/p with PP hemorrhage, prolonged ROM, post op day #1 , with PP hemorrhage, dilation and curettage, emergency IRAIS (supracervical hysterectomy), s/p 4 units PRRBCs, mass trasfusion protocol, 2 units ffp and 1 pack platelets 2. thrombocytopenia - plts and hgb have decreased since yesterday; dic panel pending 3. Acute blood loss anemia - give addl 1 unit of blood today. Patient is dizzy with standing Plan: Routine care. Encourage breast feeding. Encourage ambulation., SCDs Ferrous sulfate supplementation, additional unit today, dic panel Vitals - Labs Vital Signs - I&O Vital Signs Date Time Temp Pulse Resp B/P (MAP) Pulse Ox O2 Delivery O2 Flow Rate FiO2 10/30/16 04:15 98.6 80 18 109/56 98 Room Air 10/30/16 00:35 98.3 88 18 113/61 98 Room Air 10/29/16 20:53 98.6 80 18 120/70 100 Room Air 10/29/16 16:00 99.0 83 18 108/64 98 Room Air 10/29/16 13:00 99.1 71 18 100/60 99 Room Air 10/29/16 12:30 69 18 110/61 99 Room Air 10/29/16 12:00 68 18 106/57 98 Room Air 10/29/16 11:30 98.4 80 18 103/80 98 Room Air 10/29/16 11:00 84 18 99/57 100 Room Air 10/29/16 10:30 98.6 83 18 110/60 98 Room Air 10/29/16 10:00 84 18 116/62 100 Room Air 10/29/16 09:30 99.7 86 18 112/51 100 Room Air 10/29/16 09:10 100.1 84 16 110/68 100 Room Air Labs Laboratory Tests 10/29/16 08:36: White Blood Count 17.7H, Red Blood Count 3.56L, Hemoglobin 10.7L, Hematocrit 32L , Mean Corpuscular Volume 90, Mean Corpuscular Hemoglobin 30, Mean Corpuscular Hemoglobin Concent 34, Red Cell Distribution Width 13.5, Platelet Count 92L, Mean Platelet Volume 13.7H, Neutrophils (%) (Auto) 88H, Lymphocytes (%) (Auto) 3L, Monocytes (%) (Auto) 8, Eosinophils (%) (Auto) 0, Basophils (%) (Auto) 0, Neutrophils # (Auto) 15.6H, Lymphocytes # (Auto) 0.6L, Monocytes # (Auto) 1.5H, Eosinophils # (Auto) 0.0, Basophils # (Auto) 0.0 10/29/16 12:10: White Blood Count 11.7H, Red Blood Count 3.17L, Hemoglobin 9.4L, Hematocrit 28L , Mean Corpuscular Volume 89, Mean Corpuscular Hemoglobin 30, Mean Corpuscular Hemoglobin Concent 34, Red Cell Distribution Width 13.2, Platelet Count 82L, Mean Platelet Volume 13.9H, Neutrophils (%) (Auto) 85H, Lymphocytes (%) (Auto) 6L, Monocytes (%) (Auto) 9, Eosinophils (%) (Auto) 0, Basophils (%) (Auto) 0, Neutrophils # (Auto) 10.0H, Lymphocytes # (Auto) 0.7L, Monocytes # (Auto) 1.0, Eosinophils # (Auto) 0.0, Basophils # (Auto) 0.0 10/30/16 06:16: White Blood Count 8.0, Red Blood Count 2.51L, Hemoglobin 7.5#L, Hematocrit 22L, Mean Corpuscular Volume 89, Mean Corpuscular Hemoglobin 30, Mean Corpuscular Hemoglobin Concent 34, Red Cell Distribution Width 13.3, Platelet Count 68L, Mean Platelet Volume 13.7H, Neutrophils (%) (Auto) 73, Lymphocytes (%) (Auto) 15 , Monocytes (%) (Auto) 10, Eosinophils (%) (Auto) 2, Basophils (%) (Auto) 0, Neutrophils # (Auto) 5.8, Lymphocytes # (Auto) 1.2, Monocytes # (Auto) 0.8, Eosinophils # (Auto) 0.2, Basophils # (Auto) 0.0 TAYLOR ALEXANDER DO Oct 30, 2016 07:59
[2016-10-30] MEDS ORDERED: FERROUS SULF 325 MG (IRON) TAB PO ONE (08:35)
[2016-10-30 08:50] LABS: PROTHROMBIN TIME PATIENT 13.2 SEC (12.2-14.7)
[2016-10-30] MEDS: DOCUSATE SODIUM 100 MG (COLACE) CAP PO SCH ×2 (08:51→21:46)
[2016-10-30] MEDS: FERROUS SULF 325 MG (IRON) TAB PO SCH ×2 (08:51→15:53)
[2016-10-30] MEDS: CATHETER FLUSH 10 ML SYR IV SCH (09:21)
[2016-10-30] MEDS: NS IV 1000 ML 1,000 ML IV PRN (09:24)
[2016-10-30] MEDS ORDERED: ONDANSETRON 4 MG/2 ML (SDV) Z0FRAN IVP PRN (14:45)
--- NOTE | 2016-10-30 15:11 | Anesthesia-Regional Post-Op ---
Regional Patient Condition Mental Status: Alert, Oriented x3 Circulation: Same as Pre-Op Headache: Absent Sensation: Full Recovery Motor Block: Absent Post Op Complications Complications None Follow Up Care/Instructions Patient Instructions None needed. Anesthesia/Patient Condition Patient is doing well, stable vital signs, no apparent adverse anesthesia problems. She was receiving PRBCs this am when I did my post-op visit. She had no PONV, no sore throat or anesthetic recall after her GA for hysterectomy. She still has epidural in place due to plt count of 68,000. Will continue to monitor plt count and pull epidural catheter when it rises. ERICK CALDERON DO Oct 30, 2016 15:11
[2016-10-30] MEDS: IBUPROFEN 600 MG (MOTRIN) TAB PO SCH ×2 (15:53→21:47)
[2016-10-30 18:04] LABS: BASOPHILS % (AUTO) 0 % (0-10); EOSINOPHILS # (AUTO) 0.3 10^3/uL (0.0-0.3); EOSINOPHILS % (AUTO) 3 % (0-10); LYMPHOCYTES # (AUTO) 1.3 X 10^3 (1.0-4.0); LYMPHOCYTES % (AUTO) 13 % (12-44); MEAN CORPUSCULAR HEMOGLOBIN 29 PG (25-34); MEAN CORPUSCULAR HGB CONC 33 G/DL (32-36); MEAN CORPUSCULAR VOLUME 88 FL (80-99); MONOCYTES # (AUTO) 1.1 X 10^3 (0.0-1.0); MONOCYTES % (AUTO) 10 % (0-12); NEUTROPHILS # (AUTO) 7.8 X 10^3 (1.8-7.8); NEUTROPHILS % (AUTO) 74 % (42-75); PLATELET COUNT 83 10^3/uL (130-400); RED BLOOD COUNT 3.07 10^6/uL (4.35-5.85); RED CELL DISTRIBUTION WIDTH 14.1 % (10.0-14.5); WHITE BLOOD COUNT 10.4 10^3/uL (4.3-11.0)
[2016-10-31 01:00] VITALS: BP 122/70
[2016-10-31] MEDS: HYDROcodone/APAP 5 MG/325 MG (LORTAB) TAB PO PRN ×2 (01:09→08:27)
[2016-10-31 04:50] VITALS: BP 116/62
[2016-10-31] MEDS: IBUPROFEN 600 MG (MOTRIN) TAB PO SCH ×4 (04:55→23:43)
[2016-10-31 06:17] LABS: BASOPHILS % (AUTO) 0 % (0-10); EOSINOPHILS # (AUTO) 0.4 10^3/uL (0.0-0.3); EOSINOPHILS % (AUTO) 4 % (0-10); LYMPHOCYTES # (AUTO) 1.7 X 10^3 (1.0-4.0); LYMPHOCYTES % (AUTO) 18 % (12-44); MEAN CORPUSCULAR HEMOGLOBIN 29 PG (25-34); MEAN CORPUSCULAR HGB CONC 33 G/DL (32-36); MEAN CORPUSCULAR VOLUME 89 FL (80-99); MEAN PLATELET VOLUME 14.3 FL (7.4-10.4); MONOCYTES # (AUTO) 0.9 X 10^3 (0.0-1.0); MONOCYTES % (AUTO) 9 % (0-12); NEUTROPHILS # (AUTO) 6.4 X 10^3 (1.8-7.8); NEUTROPHILS % (AUTO) 69 % (42-75); PLATELET COUNT 78 10^3/uL (130-400); RED CELL DISTRIBUTION WIDTH 14.4 % (10.0-14.5); WHITE BLOOD COUNT 9.3 10^3/uL (4.3-11.0)
[2016-10-31 08:20] VITALS: BP 125/73
[2016-10-31] MEDS ORDERED: TETANUS,DIPTH,PERTUSS P/F (BOOSTRIX) 0.5 ML VIAL IM ONE ×2 (08:24→09:45)
[2016-10-31] MEDS: FERROUS SULF 325 MG (IRON) TAB PO SCH ×2 (08:27→20:47)
[2016-10-31] MEDS: DOCUSATE SODIUM 100 MG (COLACE) CAP PO SCH ×2 (08:27→20:47)
--- NOTE | 2016-10-31 11:27 | Anesthesia-Regional Post-Op ---
Regional Patient Condition Mental Status: Alert, Oriented x3 Circulation: Same as Pre-Op Headache: Absent Sensation: Full Recovery Motor Block: Absent Post Op Complications Complications None Follow Up Care/Instructions Patient Instructions None needed. Anesthesia/Patient Condition Patient is doing well, no complaints, stable vital signs, no apparent adverse anesthesia problems. No complications reported per nursing. Platelet count remains low, will leave catheter in place and reassess lab values in am. GARETH ATKINS CRNA Oct 31, 2016 11:27
[2016-10-31 12:30] VITALS: BP 119/70
[2016-10-31 16:45] VITALS: BP 116/66
[2016-10-31 20:45] VITALS: BP 125/70
[2016-11-01] VITALS: BP 122/65
[2016-11-01 04:00] VITALS: BP 122/67
[2016-11-01] MEDS: IBUPROFEN 600 MG (MOTRIN) TAB PO SCH ×2 (06:20→12:35)
[2016-11-01 08:00] VITALS: BP_SYST 108; BP_SYST 125; BP_DIAS 71; BP_DIAS 76
[2016-11-01 08:07] LABS: BASOPHILS % (AUTO) 0 % (0-10); EOSINOPHILS # (AUTO) 0.6 10^3/uL (0.0-0.3); EOSINOPHILS % (AUTO) 7 % (0-10); LYMPHOCYTES # (AUTO) 1.5 X 10^3 (1.0-4.0); LYMPHOCYTES % (AUTO) 17 % (12-44); MEAN CORPUSCULAR HEMOGLOBIN 29 PG (25-34); MEAN CORPUSCULAR HGB CONC 32 G/DL (32-36); MEAN CORPUSCULAR VOLUME 90 FL (80-99); MEAN PLATELET VOLUME 13.5 FL (7.4-10.4); MONOCYTES # (AUTO) 0.6 X 10^3 (0.0-1.0); MONOCYTES % (AUTO) 7 % (0-12); NEUTROPHILS # (AUTO) 5.9 X 10^3 (1.8-7.8); NEUTROPHILS % (AUTO) 68 % (42-75); PLATELET COUNT 95 10^3/uL (130-400); RED BLOOD COUNT 2.95 10^6/uL (4.35-5.85); RED CELL DISTRIBUTION WIDTH 14.5 % (10.0-14.5); WHITE BLOOD COUNT 8.6 10^3/uL (4.3-11.0)
[2016-11-01] MEDS: FERROUS SULF 325 MG (IRON) TAB PO SCH (09:14)
[2016-11-01] MEDS: DOCUSATE SODIUM 100 MG (COLACE) CAP PO SCH (09:14)
[2016-11-01] MEDS: HYDROcodone/APAP 5 MG/325 MG (LORTAB) TAB PO PRN (09:16)
[2016-11-01] MEDS ORDERED: HYDR-3812 PO (11:29)
[2016-11-01] MEDS ORDERED: IBUP-1773 PO (11:29)
[2016-11-01] MEDS ORDERED: FERR-74 PO (11:29)
--- NOTE | 2016-11-01 11:30 | Discharge Inst-Women's Service ---
Discharge Inst-Women's Serv Depart Medication/Instructions New, Converted or Re-Newed RX: RX Given to Pt/Family Consults/Follow Up Additional Follow Up: Yes Orders/Referrals Dr. [place] i n7-10 days and with [place] in 6 weeks Activity Activity: Activity as Tolerated Driving Instructions: No Driving for 1 Week NO SMOKING: NO SMOKING Nothing Inside Vagina: No Douching, No [place], No Tampons Diet Discharge Diet: No Restrictions Symptoms to Report to : Bleeding Excessive, Pain Increased, Fever Over 101 Degrees F, Vaginal Bleeding Increase, Questions/Concerns For Any Problems or Questions: Contact Your Physician Skin/Wound Care Infection Signs and Symptoms: Increased Redness, Foul Odor of Wound, Increased Drainage, Skin Itchy or Has a Rash, Increased Swelling, Temperature Above 101 F Operative Area Clean and Dry: Keep Incision Clean/Dry Stitches/[place]/Dermabond: Dermabond, Care of Stitches Bathing Instructions: JUANITO Tapia DO Nov 01, 2016 11:30 am
--- NOTE | 2016-11-01 12:04 | Progress Note-Standard ---
Standard Progress Note Progress Notes/Assess & Plan Date Seen by Provider: Nov 01, 2016 Time Seen by Provider: 09:30 Progress/Assessment & Plan 10/31: late entry note. Patient continues to improve ambulating without getting lightheaded this morning. No vaginal bleeding. Hgb dropped a bit more, but overall patient stable and improving. Incision: c/d/i 11/01 Patient seen this morning and doing much better than yesterday. Ambulating and voiding freely. Pain well controlled. Vital Sign - Last 24 Hours 10/31/16 10/31/16 10/31/16 11/01/16 12:30 16:45 20:45 00:00 Temp 98.9 98.7 97.7 98.9 Pulse 88 88 96 91 Resp 18 18 18 B/P (MAP) 119/70 116/66 125/70 122/65 Pulse Ox 99 99 100 99 O2 Delivery Room Air Room Air Room Air Room Air 11/01/16 11/01/16 04:00 08:00 Temp 98.4 98.2 Pulse 91 80 Resp 18 B/P (MAP) 122/67 125/71 Pulse Ox 99 98 O2 Delivery Room Air Room Air Laboratory Tests Test 11/01/16 07:56 Range/Units White Blood Count 8.6 4.3-11.0 10^3/uL Red Blood Count 2.95 L 4.35-5.85 10^6/uL Hemoglobin 8.6 L 11.5-16.0 G/DL Hematocrit 27 L 35-52 % Mean Corpuscular Volume 90 80-99 FL Mean Corpuscular Hemoglobin 29 25-34 PG Mean Corpuscular Hemoglobin Concent 32 32-36 G/DL Red Cell Distribution Width 14.5 10.0-14.5 % Platelet Count 95 L 130-400 10^3/uL Mean Platelet Volume 13.5 H 7.4-10.4 FL Neutrophils (%) (Auto) 68 42-75 % Lymphocytes (%) (Auto) 17 12-44 % Monocytes (%) (Auto) 7 0-12 % Eosinophils (%) (Auto) 7 0-10 % Basophils (%) (Auto) 0 0-10 % Neutrophils # (Auto) 5.9 1.8-7.8 X 10^3 Lymphocytes # (Auto) 1.5 1.0-4.0 X 10^3 Monocytes # (Auto) 0.6 0.0-1.0 X 10^3 Eosinophils # (Auto) 0.6 H 0.0-0.3 10^3/uL Basophils # (Auto) 0.0 0.0-0.1 10^3/uL Incision: c/d/i Diagnosis: PPD 3 from NVD with subsequent PP supracervical hysterectomy PP hemorrhage Acute blood loss anemia Gestational thrombocytopenia s/p mass transfusion protocol : 6 uPRBC/1 unit FFP/ 1 unit platelets P Will dc later today Short term follow up and PP/PO precautions reviewed 6 week follow up with provider in [place] Continue iron/folic acid supplementation pp JUANITO CABA DO Nov 01, 2016 12:04 pm
--- NOTE | 2016-11-01 13:11 | Progress Note-Standard ---
Standard Progress Note Progress Notes/Assess & Plan Date Seen by Provider: Nov 01, 2016 Time Seen by Provider: 13:00 Final Diagnosis Epidural removed, no complication. ROSALIO MAJOR CRNA Nov 01, 2016 13:11
[2016-11-01 14:30] VITALS: BP 125/70
== END 2016-11-01 14:30 | disposition home or self-care (01) | DRG 767 ==
LOC: WSo 15:40 → LDRP 15:40 → WSo 16:55 → LDRP 16:55
PROVIDERS: ADMIT Obstetrics & Gynecology; ATTEND Obstetrics & Gynecology
PROC: 0UDB7ZZ Extraction of Endometrium, Via Natural or Artificial Opening (ICD-10-PCS; 2016-10-29)
PROC: 0UT90ZZ Resection of Uterus, Open Approach (ICD-10-PCS; 2016-10-29)
PROC: 10E0XZZ Delivery of Products of Conception, External Approach (ICD-10-PCS; principal; 2016-10-29 05:48)
DX: O99.283 Endocrine, nutritional and metabolic diseases complicating pregnancy, third trimester (principal); E03.9 Hypothyroidism, unspecified; O72.0 Third-stage hemorrhage; O43.213 Placenta accreta, third trimester; O99.03 Anemia complicating the puerperium; D62 Acute posthemorrhagic anemia; O99.113 Other diseases of the blood and blood-forming organs and certain disorders involving the immune mechanism complicating pregnancy, third trimester; D69.6 Thrombocytopenia, unspecified; O99.820 Streptococcus B carrier state complicating pregnancy; O69.81X0 Labor and delivery complicated by cord around neck, without compression, not applicable or unspecified; O99.513 Diseases of the respiratory system complicating pregnancy, third trimester; J45.909 Unspecified asthma, uncomplicated; Z3A.37 37 weeks gestation of pregnancy; Z37.0 Single live birth; Z23 Encounter for immunization
CPT/HCPCS: 36415; 80306; 81000; 83033; 85025; 85379; 85384; 85610; 85730; 86850; 86900; 86901; 86920; 90715; 94664; 99212

== ENCOUNTER → 2016-12-20 | Outpatient (CLI) | payer MEDICAID ==
[~2016-12-20] MED LIST: FERR-74 PO; HYDR-3812 PO; IBUP-1773 PO; LEVO25TA5 PO
--- NOTE | 2016-12-20 12:43 | Diagnostic Imaging Report ---
PROCEDURE: CT abdomen and pelvis without contrast. TECHNIQUE: Multiple contiguous axial images were obtained through the abdomen and pelvis without the use of intravenous contrast. INDICATION: Abdominal pain. FINDINGS: The lung bases appear clear. The liver, the spleen, the pancreas, and the adrenal glands appear unremarkable for an unenhanced exam. Cholecystectomy clips are seen. There is a 3 mm nonobstructive stone in the mid right kidney. No hydronephrosis in either kidney is noted. There are calcifications in the pelvis which appear to relate to phleboliths with no urinary tract stone identified. The abdominal aorta is normal in caliber. No para-aortic significantly enlarged lymph node is seen. No significant free fluid or fluid collection of the abdomen or pelvis is seen. There is no bowel obstruction. A few diverticula are noted in the sigmoid colon with no evidence of diverticulitis. The urinary bladder appears unremarkable. The uterus and adnexa appear grossly unremarkable. IMPRESSION: Nonobstructive 3 mm stone in the mid right kidney. No hydronephrosis. Dictated by: Dictated on workstation # [id number]
== END ==
LOC: RAD 09:25
PROVIDERS: ATTEND Obstetrics & Gynecology
DX: N20.0 Calculus of kidney (principal); G89.18 Other acute postprocedural pain; Z90.711 Acquired absence of uterus with remaining cervical stump
CPT/HCPCS: 74176